=== PATIENT | male | born 1975 | race Caucasian/White ===

== ENCOUNTER → 2016-12-11 | Outpatient (CLI) | payer OTHER ==
[2016-12-11 12:36] LABS: ALT/SGPT 19 U/L (12-78); BLOOD UREA NITROGEN 10 mg/dl (7-18); BUN/CREATININE RATIO 11.4 (10-20); CALCIUM 8.9 mg/dl (8.5-10.1); CARBON DIOXIDE 27 mmol/L (21-32); CHLORIDE 103 mmol/L (98-107); CHOLESTEROL 165 mg/dl (0-200); GLUCOSE 94 mg/dl (70-99); POTASSIUM 4.1 mmol/L (3.5-5.1); SODIUM 140 mmol/L (136-145); TRIGLYCERIDES 109 mg/dl (0-150); VERY LOW DENSITY LIPOPROT CALC 22 mg/dl
[2016-12-11 12:47] LABS: ALB/GLOB RATIO 0.9 (0.9-2); ALKALINE PHOSPHATASE 64 U/L (45-117); AST/SGOT 14 U/L (15-37); CHOLESTEROL/HDL RATIO 4.6; HDL CHOLESTEROL 36 mg/dl; LDL CHOLESTEROL CALCULATED 107 mg/dl
== END ==
LOC: C.LAB 11:27
PROVIDERS: ATTEND Nurse Practitioner Family
DX: E03.9 Hypothyroidism, unspecified (principal); Z13.220 Encounter for screening for lipoid disorders

== ENCOUNTER → 2017-05-23 | Outpatient (CLI) | payer OTHER ==
--- NOTE | 2017-05-23 12:14 | DIAGNOSTIC IMAGING REPORT ---
CHEST 2 VIEWS ROUTINE CLINICAL HISTORY: 42 years-old Male presenting with cough for 2 weeks. TECHNIQUE: PA and lateral views of the chest were obtained. COMPARISON: None. FINDINGS: Cardiomediastinal silhouette normal. Lungs and pleural spaces clear. Osseous structures normal. Upper abdomen normal. IMPRESSION: 1. No acute cardiopulmonary disease. Electronically signed by: Kaiden Jefferson M.D. 05/23/2017 12:13 PM Dictated Date/Time: 05/23/2017 12:12 PM
== END | disposition home or self-care (01) ==
LOC: C.RAD 11:44
PROVIDERS: ATTEND Nurse Practitioner Family
DX: R05 Cough (principal)

== ENCOUNTER → 2017-06-15 | Outpatient (CLI) | payer OTHER ==
--- NOTE | 2017-06-15 14:23 | DIAGNOSTIC IMAGING REPORT ---
SINUSES MIN 3 VIEWS ROUTINE CLINICAL HISTORY: COUGH COMPARISON STUDY: None. FINDINGS: The paranasal sinuses and mastoid air cells are clear. The nasal septum is essentially midline. No fluid levels within the paranasal sinuses. IMPRESSION: The paranasal sinuses and mastoid air cells are clear. Electronically signed by: West Villar M.D. 06/15/2017 2:22 PM Dictated Date/Time: 06/15/2017 2:20 PM
== END | disposition home or self-care (01) ==
LOC: C.LAB 13:57
PROVIDERS: ATTEND Physician Assistant
DX: R05 Cough (principal)